=== PATIENT | male | born 1950 | race Caucasian/White ===

== ENCOUNTER 2016-12-18 12:50 | Emergency (ER) | payer MEDICARE, OTHER ==
[~2016-12-18 12:50] MED LIST: LISINOPRIL10 MG PO; METFORMIN HCL500 MG PO
== END 2016-12-18 13:23 | disposition home or self-care (01) ==
LOC: ER 12:50
DX: R04.0 Epistaxis (principal); I10 Essential (primary) hypertension; E11.9 Type 2 diabetes mellitus without complications; F17.220 Nicotine dependence, chewing tobacco, uncomplicated; Z90.49 Acquired absence of other specified parts of digestive tract; Z79.84 Long term (current) use of oral hypoglycemic drugs; Z79.82 Long term (current) use of aspirin; Z79.899 Other long term (current) drug therapy